=== PATIENT | female | born 1970 | race Caucasian/White ===

== ENCOUNTER 2018-12-17 16:00 | Emergency (ER) | payer OTHER ==
[2018-12-17 16:06] VITALS: BP 105/79; PULSE 82; RESP 18; TEMP 98
--- NOTE | 2018-12-17 16:44 | ED ---
Upper Extremity HPI - General Chief Complaint: Extremity Injury, Upper Stated Complaint: wants cast on lt arm Time Seen by Provider: 12/17/18 16:19 Source: patient Mode of arrival: ambulatory Limitations: no limitations - History of Present Illness Initial Comments: 48-year-old female with history of left distal radius fracture present today for chief complaint of application of cast. Patient states that when attempting to get into her car she fell last week. She states she sustained a left distal radius fracture. I reviewed the imaging studies it did not appear displaced. Patient denies numbness tingling of sensation increasing pain or increasing swelling at the site. She states she was evaluated by orthopedic surgery physician nutrition services assistant Dahlia Swartz. She states she does not wish to go back to that facility and wants a new orthopedic surgery consultation. Patient states she thought she could get one at the emergency department as well as application of cast and asthma she presented. No other complaints. Remaining review of systems negative upon arrival patient appears well there is current splint in place. - Related Data Allergies Allergy/AdvReac Type Severity Reaction Status Date / Time codeine Allergy Rash/Hives Verified 12/17/18 16:06 Review of Systems ROS Statement: Those systems with pertinent positive or pertinent negative responses have been documented in the HPI. ROS Other: All systems not noted in ROS Statement are negative. Past Medical History Past Medical History: Thyroid Disorder Additional Past Medical History / Comment(s): cervical CA 1989, History of Any Multi-Drug Resistant Organisms: None Reported Past Surgical History: Cholecystectomy, Uterine Ablation Additional Past Surgical History / Comment(s): steel plate left eye, surgery to Great toe, tracheotomy as child, stomach surgery as child, Past Psychological History: No Psychological Hx Reported Smoking Status: Current every day smoker Past Alcohol Use History: None Reported Past Drug Use History: None Reported General Exam - General Exam Comments Initial Comments: General: The patient is awake and alert, in no distress, and does not appear acutely ill. Eye: Pupils are equal, round and reactive to light, extra-ocular movements are intact. No nystagmus. There is normal conjunctiva bilaterally. No signs of icterus. . Cardiovascular: There is a regular rate and rhythm. No murmur, rub or gallop is appreciated. Respiratory: Lungs are clear to auscultation, respirations are non-labored, breath sounds are equal. No wheezes, stridor, rales, or rhonchi. Musculoskeletal: Normal ROM elbow wrist bilaterally. Patient called the tenderness is range of motion of the left wrist. Strength 5/5. Sensation intact approximately distal to injury site equal comparison with unaffected site. +2 radial pulses equal bilaterally 2+. Her parents are soft and compressible. No anatomical snuffbox tenderness Neurological: A&O x 3. CN II-XII intact, There are no obvious motor or sensory deficits. Coordination appears grossly intact. Speech is normal. Skin: Skin is warm and dry and no rashes or lesions are noted. Psychiatric: Cooperative, appropriate mood & affect, normal judgment. Limitations: no limitations Course Vital Signs 12/17/18 12/17/18 16:01 16:56 Temperature 98 F 98 F Pulse Rate 82 82 Respiratory 18 18 Rate Blood Pressure 105/79 105/79 O2 Sat by Pulse 98 98 Oximetry Medical Decision Making - Medical Decision Making Well appearing 48-year-old female presenting for cast placement. Patient has normal physical examination aide from pain with range of motion at the left wrist. There is no soft tissue swelling. No bruising. Compartments are soft and compressible patient is neurovascularly intact. Patient had a nondisplaced fracture of the distal radius. Do not feel there is risk of displacement and given patient has no history of repetitive trauma. Patient has been wearing splint. Splint was replaced however cast will be applied all patient orthopedic surgeon office. I did give patient a new orthopedic surgery provider on discharge for consultation. Return parameters were discussed at length I did stress the importance of follow-up. Patient was discharged appearing well. Discussed the case with Dr. Skelton prior to patient's discharge was agreeable care plan Disposition Clinical Impression: Distal radius fracture, left Disposition: HOME SELF-CARE Condition: Good Instructions (If sedation given, give patient instructions): Wrist Fracture in Adults (ED) Additional Instructions: Please use medication as discussed. Please follow-up with orthopedic surgery within the next 1-2 days as discussed. Please return to emergency room if the symptoms increase or worsen or for any other concerns. Is patient prescribed a controlled substance at d/c from ED?: No Referrals: Laisha Stewart MD [Primary Care Provider] - 1-2 days Stef Guido MD [STAFF PHYSICIAN] - 1-2 days Time of Disposition: 16:44
== END 2018-12-17 16:56 | disposition home or self-care (01) ==
LOC: EC 16:00
DX: S52.502A Unspecified fracture of the lower end of left radius, initial encounter for closed fracture (principal); F17.200 Nicotine dependence, unspecified, uncomplicated; Z85.41 Personal history of malignant neoplasm of cervix uteri; Z88.5 Allergy status to narcotic agent; V48.4XXA Person boarding or alighting a car injured in noncollision transport accident, initial encounter
CPT/HCPCS: 29125; 99282

== ENCOUNTER 2019-02-07 10:49 | Emergency (ER) | payer OTHER ==
[2019-02-07 10:55] VITALS: RESP 18
[2019-02-07] MEDS ORDERED: SODIUM CHLORIDE 0.9% 1,000 ML IV STA (11:09)
[2019-02-07] MEDS ORDERED: ONDANSETRON 4 MG/2 ML VIAL IVP STA (11:09)
[2019-02-07] MEDS ORDERED: PANTOPRAZOLE 40 MG/10 ML VIAL IVP STA (11:09)
--- NOTE | 2019-02-07 11:21 | ED ---
Abdominal Pain HPI - General Chief Complaint: Abdominal Pain Stated Complaint: abd pain Time Seen by Provider: 02/07/19 10:56 Source: patient Mode of arrival: ambulatory Limitations: no limitations - History of Present Illness Initial Comments: Patient is a 48-year-old female presenting to the emergency Department with complaints of upper abdominal pain that has been intermittent x 1 year. Patient states ever since she had her gallbladder removed approximately 20 years ago she's been dealing with intermittent diarrhea. Patient states most recently, past year, she's been having upper abdominal pain and it is just been getting worse and worse. Patient states no matter what she eats or drinks she ends up having to use the restroom. Patient states if she lays down on her left side the abdominal pain lessens. Patient reports mild nausea today as well. Patient denies fever, chills, vomiting. Patient denies any other abdominal surgeries. Patient denies urinary complaints at this time. No other complaints at this time. Upon arrival to ER, vital signs stable, afebrile. - Related Data Home Medications Medication Instructions Recorded Confirmed Levothyroxine Sodium [Synthroid] 75 mcg PO HS 02/07/19 02/07/19 Levothyroxine Sodium [Synthroid] 200 mcg PO HS 02/07/19 02/07/19 Allergies Allergy/AdvReac Type Severity Reaction Status Date / Time codeine Allergy Rash/Hives Verified 02/07/19 11:13 Review of Systems ROS Statement: Those systems with pertinent positive or pertinent negative responses have been documented in the HPI. ROS Other: All systems not noted in ROS Statement are negative. Past Medical History Past Medical History: Thyroid Disorder Additional Past Medical History / Comment(s): cervical CA 1989, History of Any Multi-Drug Resistant Organisms: None Reported Past Surgical History: Cholecystectomy, Uterine Ablation Additional Past Surgical History / Comment(s): steel plate left eye, surgery to Great toe, tracheotomy as child, stomach surgery as child, Past Psychological History: No Psychological Hx Reported Smoking Status: Current every day smoker Past Alcohol Use History: None Reported Past Drug Use History: None Reported General Exam - General Exam Comments Initial Comments: GENERAL: Well-appearing, well-nourished and in no acute distress. HEAD: Atraumatic, normocephalic. EYES: Pupils equal round and reactive to light, extraocular movements intact, sclera anicteric, conjunctiva are normal. ENT: TMs normal, nares patent, oropharynx clear without exudates. Moist mucous membranes. NECK: Normal range of motion, supple without lymphadenopathy or JVD. LUNGS: Breath sounds clear to auscultation bilaterally and equal. No wheezes rales or rhonchi. HEART: Regular rate and rhythm without murmurs, rubs or gallops. ABDOMEN: Tenderness to the epigastric and left upper quadrant. Soft, normoactive bowel sounds. No guarding, no rebound. No masses appreciated. : Deferred EXTREMITIES: Normal range of motion, no pitting or edema. No clubbing or cyanosis. NEUROLOGICAL: Cranial nerves II through XII grossly intact. Normal speech, normal gait. PSYCH: Normal mood, normal affect. SKIN: Warm, Dry, normal turgor, no rashes or lesions noted. Limitations: no limitations Course Vital Signs 02/07/19 02/07/19 02/07/19 10:51 14:39 14:43 Temperature 97.8 F 98.7 F 98.7 F Pulse Rate 74 56 L 56 L Respiratory 18 18 18 Rate Blood Pressure 132/85 101/64 101/64 O2 Sat by Pulse 98 98 98 Oximetry Medical Decision Making - Medical Decision Making Patient is a 48-year-old female complaining of abdominal pain on and off x 1 year. Admits to cholecystectomy approximately 20 years ago and has been dealing with diarrhea. Patient does not have a GI. Vital signs are stable upon arrival, afebrile. CBC, CMP, lactic acid are all within normal limits. UA is normal. Patient was given fluids, Protonix, Zofran and reports improvement. It was discussed with patient's that her pain could be coming from an ulcer. It was discussed the patient needs a follow-up with GI. GI referral was given. Patient is stable for discharge at this time. Return per his were discussed with patient she verbalized understanding. Case discussed with Dr. Day. - Lab Data Result diagrams: 02/07/19 11:58 02/07/19 11:58 Lab Results 02/07/19 02/07/19 02/07/19 Range/Units 11:58 11:58 11:58 WBC 6.9 (3.8-10.6) k/uL RBC 4.40 (3.80-5.40) m/uL Hgb 13.7 (11.4-16.0) gm/dL Hct 42.7 (34.0-46.0) % MCV 97.0 (80.0-100.0) fL MCH 31.2 (25.0-35.0) pg MCHC 32.2 (31.0-37.0) g/dL RDW 14.8 (11.5-15.5) % Plt Count 621 H (150-450) k/uL Neutrophils % (Manual) 70 % Band Neutrophils % 1 % Lymphocytes % (Manual) 21 % Monocytes % (Manual) 8 % Neutrophils # (Manual) 4.80 (1.3-7.7) k/uL Lymphocytes # (Manual) 1.45 (1.0-4.8) k/uL Monocytes # (Manual) 0.55 (0-1.0) k/uL Nucleated RBCs 0 (0-0) /100 WBC Manual Slide Review Performed RBC Morphology Normal Sodium 139 (137-145) mmol/L Potassium 4.4 (3.5-5.1) mmol/L Chloride 107 (98-107) mmol/L Carbon Dioxide 25 (22-30) mmol/L Anion Gap 7 mmol/L BUN 11 (7-17) mg/dL Creatinine 0.75 (0.52-1.04) mg/dL Est GFR (CKD-EPI)AfAm >90 (>60 ml/min/1.73 sqM) Est GFR (CKD-EPI)NonAf >90 (>60 ml/min/1.73 sqM) Glucose 85 (74-99) mg/dL Plasma Lactic Acid Uli 0.9 (0.7-2.0) mmol/L Calcium 9.4 (8.4-10.2) mg/dL Total Bilirubin 0.6 (0.2-1.3) mg/dL AST 15 (14-36) U/L ALT 16 (9-52) U/L Alkaline Phosphatase 69 (38-126) U/L Total Protein 6.5 (6.3-8.2) g/dL Albumin 3.7 (3.5-5.0) g/dL Amylase 42 (30-110) U/L Lipase 91 (23-300) U/L Urine Color Urine Appearance (Clear) Urine pH (5.0-8.0) Ur Specific [place] (1.001-1.035) Urine Protein (Negative) Urine Glucose (UA) (Negative) Urine Ketones (Negative) Urine Blood (Negative) Urine Nitrite (Negative) Urine Bilirubin (Negative) Urine Urobilinogen (<2.0) mg/dL Ur Leukocyte Esterase (Negative) Urine RBC (0-5) /hpf Urine WBC (0-5) /hpf Ur Squamous Epith Cells (0-4) /hpf Amorphous Sediment (None) /hpf Urine Bacteria (None) /hpf Urine Mucus (None) /hpf 02/07/19 Range/Units 12:04 WBC (3.8-10.6) k/uL RBC (3.80-5.40) m/uL Hgb (11.4-16.0) gm/dL Hct (34.0-46.0) % MCV (80.0-100.0) fL MCH (25.0-35.0) pg MCHC (31.0-37.0) g/dL RDW (11.5-15.5) % Plt Count (150-450) k/uL Neutrophils % (Manual) % Band Neutrophils % % Lymphocytes % (Manual) % Monocytes % (Manual) % Neutrophils # (Manual) (1.3-7.7) k/uL Lymphocytes # (Manual) (1.0-4.8) k/uL Monocytes # (Manual) (0-1.0) k/uL Nucleated RBCs (0-0) /100 WBC Manual Slide Review RBC Morphology Sodium (137-145) mmol/L Potassium (3.5-5.1) mmol/L Chloride (98-107) mmol/L Carbon Dioxide (22-30) mmol/L Anion Gap mmol/L BUN (7-17) mg/dL Creatinine (0.52-1.04) mg/dL Est GFR (CKD-EPI)AfAm (>60 ml/min/1.73 sqM) Est GFR (CKD-EPI)NonAf (>60 ml/min/1.73 sqM) Glucose (74-99) mg/dL Plasma Lactic Acid Uli (0.7-2.0) mmol/L Calcium (8.4-10.2) mg/dL Total Bilirubin (0.2-1.3) mg/dL AST (14-36) U/L ALT (9-52) U/L Alkaline Phosphatase (38-126) U/L Total Protein (6.3-8.2) g/dL Albumin (3.5-5.0) g/dL Amylase (30-110) U/L Lipase (23-300) U/L Urine Color Yellow Urine Appearance Cloudy H (Clear) Urine pH 6.5 (5.0-8.0) Ur Specific [place] 1.016 (1.001-1.035) Urine Protein Negative (Negative) Urine Glucose (UA) Negative (Negative) Urine Ketones Negative (Negative) Urine Blood Trace H (Negative) Urine Nitrite Negative (Negative) Urine Bilirubin Negative (Negative) Urine Urobilinogen <2.0 (<2.0) mg/dL Ur Leukocyte Esterase Large H (Negative) Urine RBC 8 H (0-5) /hpf Urine WBC 6 H (0-5) /hpf Ur Squamous Epith Cells 8 H (0-4) /hpf Amorphous Sediment Rare H (None) /hpf Urine Bacteria Rare H (None) /hpf Urine Mucus Occasional H (None) /hpf Disposition Clinical Impression: Abdominal pain, Nausea Disposition: HOME SELF-CARE Condition: Stable Instructions (If sedation given, give patient instructions): Abdominal Pain (ED) Additional Instructions: Please return to the Emergency Department if symptoms worsen or any other concerns. Follow up with GI as discussed. Is patient prescribed a controlled substance at d/c from ED?: No Referrals: None,Stated [Primary Care Provider] - 1-2 days Alton Reed MD [STAFF PHYSICIAN] - 1-2 days
[2019-02-07 12:11] LABS: HCT 42.7 % (34.0-46.0); HGB 13.7 gm/dL (11.4-16.0); MCH 31.2 pg (25.0-35.0); MCHC 32.2 g/dL (31.0-37.0); Mean Platelet Volume 6.3; Platelet Count 621 k/uL (150-450); RDW 14.8 % (11.5-15.5); WBC 6.9 k/uL (3.8-10.6)
[2019-02-07 12:16] LABS: ALT 16 U/L (9-52); AST 15 U/L (14-36); African American GFR (CKD) >90 (>60 ml/min/1.73 sqM); Albumin 3.7 g/dL (3.5-5.0); Alkaline Phosphatase 69 U/L (38-126); Amylase 42 U/L (30-110); Anion Gap 7 mmol/L; Blood Urea Nitrogen 11 mg/dL (7-17); Calcium 9.4 mg/dL (8.4-10.2); Carbon Dioxide 25 mmol/L (22-30); Chloride 107 mmol/L (98-107); Glucose 85 mg/dL (74-99); Non-African American GFR(CKD) >90 (>60 ml/min/1.73 sqM); Potassium 4.4 mmol/L (3.5-5.1); Sodium 139 mmol/L (137-145); Total Bilirubin 0.6 mg/dL (0.2-1.3); Total Protein 6.5 g/dL (6.3-8.2)
[2019-02-07 12:36] LABS: Amorphous Sediment,Urine Rare /hpf; Appearance,Urine Cloudy (Clear); Bacteria,Urine Rare /hpf; Bilirubin,Urine Negative (Negative); Blood,Urine Trace (Negative); Color,Urine Yellow; Glucose,Urine (UA) Negative (Negative); Ketones,Urine Negative (Negative); Leukocyte Esterase,Urine Large (Negative); Mucus,Urine Occasional /hpf; Nitrite,Urine Negative (Negative); PH, Urine 6.5 (5.0-8.0); Protein,Urine Negative (Negative); RBC,Urine 8 /hpf (0-5); Specific Gravity,Urine 1.016 (1.001-1.035); Squamous Epithelial Cell,Urine 8 /hpf (0-4); Urobilinogen,Urine <2.0 mg/dL (<2.0); WBC,Urine 6 /hpf (0-5)
[2019-02-07 12:39] LABS: Band Neutrophils % 1 %; Lymphocytes # (M) 1.45 k/uL (1.0-4.8); Monocytes # (M) 0.55 k/uL (0-1.0); Neutrophils % (M) 70 %; Nucleated Red Blood Cells 0 /100 WBC (0-0); Total Cells Counted 100
[2019-02-07 14:39] VITALS: BP 101/64; PULSE 56; TEMP 98.7
== END 2019-02-07 14:43 | disposition home or self-care (01) ==
LOC: EC 10:49
DX: R10.10 Upper abdominal pain, unspecified (principal); R11.0 Nausea; E07.9 Disorder of thyroid, unspecified; F17.200 Nicotine dependence, unspecified, uncomplicated; Z79.890 Hormone replacement therapy; Z88.5 Allergy status to narcotic agent; Z90.49 Acquired absence of other specified parts of digestive tract; Z85.41 Personal history of malignant neoplasm of cervix uteri
CPT/HCPCS: 36415; 80053; 82150; 83605; 83690; 85025; 81001; 99284; 96374; 96375; 96361 ×3; J2405; C9113